=== PATIENT | female | born 1960 | race Caucasian/White ===

== ENCOUNTER 2022-06-29 14:01 | Outpatient (CLI) | payer BC | END 2022-06-29 14:02 | disposition home or self-care (01) | LOC: CSHMAMMO 14:01 | PROVIDERS: ATTEND Obstetrics & Gynecology | DX: Z12.31 Encounter for screening mammogram for malignant neoplasm of breast (principal); Z80.3 Family history of malignant neoplasm of breast; Z85.3 Personal history of malignant neoplasm of breast | CPT/HCPCS: 77063; 77067 ==

== ENCOUNTER 2023-08-21 14:02 | Outpatient (CLI) | payer BC | END 2023-08-21 14:03 | disposition home or self-care (01) | LOC: CSHMAMMO 14:02 | PROVIDERS: ATTEND Obstetrics & Gynecology | DX: Z12.31 Encounter for screening mammogram for malignant neoplasm of breast (principal); Z80.3 Family history of malignant neoplasm of breast; Z85.3 Personal history of malignant neoplasm of breast; Z91.89 Other specified personal risk factors, not elsewhere classified | CPT/HCPCS: 77063; 77067 ==